=== PATIENT | female | born 1970 | race Caucasian/White ===

== ENCOUNTER → 2018-04-11 | Outpatient (CLI) | payer BC ==
--- NOTE | 2018-04-11 14:41 | KCIC ---
Bilateral digital screening mammograms: Reason for examination: Routine screening. Comparison is made to previous studies dated 01/08/2016 and 08/20/2013. Interpretation was made with the benefit of CAD. The skin and nipples show no abnormalities. No abnormal axillary lymph nodes are seen. The breast parenchyma is extremely dense. (Breast density: Category D.) There are no dominant masses, suspicious calcifications or architectural distortion. Impression: No evidence of malignancy. Recommend routine screening. Your patient's mammogram demonstrates that she has dense breast tissue (breast density category C or D), which could hide abnormalities, and if she has other risk factors for breast cancer that have been identified, she might benefit from supplemental screening tests that may be suggested by you as her ordering physician. Dense breast tissue, in and of itself, is a relatively common condition. Therefore, this information is not provided to cause undue concern, but rather to raise your awareness and to promote discussion with your patient regarding the presence of other risk factors, in addition to dense breast tissue. Your patient's mammography results will be sent to her. BI-RAD Category 1: Negative. "Our facility is accredited by the [employer] Mammography [employer]." This patient's information has been entered into a reminder system for the patient to be notified with the results of her examination and a target date for the next mammogram. Electronically signed by: Caryn Gage MD (04/11/2018 2:37 PM) [facility]
--- NOTE | 2018-04-11 15:16 | KCIC ---
EXAM: Pelvic sonogram. HISTORY: Vaginal bleeding. TECHNIQUE: Transabdominal sonographic imaging of the pelvis was performed. COMPARISON: None. FINDINGS: The uterus measures 9.4 x 4.2 x 5.4 cm. The endometrium measures 6.5 mm in thickness. The ovaries are normal in size and demonstrate normal blood flow. There are bilateral ovarian follicles. There is no free fluid. IMPRESSION: Unremarkable pelvic sonogram. Electronically signed by: Svetlana Ferrer MD (04/11/2018 3:13 PM) [place] [id number]
== END | disposition home or self-care (01) ==
LOC: KCIC US 13:35
PROVIDERS: ATTEND Family Medicine
DX: Z12.31 Encounter for screening mammogram for malignant neoplasm of breast (principal); N83.01 Follicular cyst of right ovary; N83.02 Follicular cyst of left ovary
CPT/HCPCS: 76856; 77067

== ENCOUNTER → 2019-05-15 | Outpatient (CLI) | payer OTHER ==
--- NOTE | 2019-05-15 15:47 | KCIC ---
Bilateral digital screening mammograms: Reason for examination: Routine screening. Comparison is made to previous studies dated 04/11/2018 and 01/08/2016. Interpretation was made with the benefit of CAD. The skin and nipples show no abnormalities. No abnormal axillary lymph nodes are seen. The breast parenchyma is extremely dense. (Breast density: Category D.) There are no dominant masses, suspicious calcifications or architectural distortion. Impression: No evidence of malignancy. Recommend routine screening. Your patient's mammogram demonstrates that she has dense breast tissue (breast density category C or D), which could hide abnormalities, and if she has other risk factors for breast cancer that have been identified, she might benefit from supplemental screening tests that may be suggested by you as her ordering physician. Dense breast tissue, in and of itself, is a relatively common condition. Therefore, this information is not provided to cause undue concern, but rather to raise your awareness and to promote discussion with your patient regarding the presence of other risk factors, in addition to dense breast tissue. Your patient's mammography results will be sent to her. BI-RAD Category 1: Negative. "Our facility is accredited by the [employer] Mammography Program." This patient's information has been entered into a reminder system for the patient to be notified with the results of her examination and a target date for the next mammogram. Electronically signed by: Caryn Gage MD (05/15/2019 3:44 PM) [facility]
== END | disposition home or self-care (01) ==
LOC: KCIC MAMMO 14:22
PROVIDERS: ATTEND Family Medicine
DX: Z12.31 Encounter for screening mammogram for malignant neoplasm of breast (principal)
CPT/HCPCS: 77067

== ENCOUNTER → 2019-08-02 | Day surgery (SDC) | payer OTHER ==
[~2019-08-02] MED LIST: GLYCOPYRROLATE 1 MG/5 ML VIAL. ONE; IV RINGERS,LACTATED 1000ML 1,000 ML IV ONE; LIDOCAINE 2% PF 5 ML VIAL. ONE; METF500T16 PO; NORT25CA PO; PROPOFOL 40 ML IV ONE; ePHEDrine PF IN SALINE 50 MG/10 ML SYRINGE. IV ONE
[2019-08-02 09:34] VITALS: BP 128/74
--- NOTE | 2019-08-02 11:26 | HP ---
ADMIT DATE: 08/02/2019 REQUESTING PHYSICIAN: Kaylah De Leon MD PRIMARY CARE PHYSICIAN: Kaylah De Leon MD REASON FOR PROCEDURE: Colorectal cancer screening. HISTORY OF PRESENT ILLNESS: This is a 48-year-old female who presents for colorectal cancer screening. She admits to a family history of stomach cancer and has mild heartburn. ALLERGIES: PENICILLIN. PAST MEDICAL HISTORY: 1. Depression. 2. Diabetes. 3. GERD. FAMILY MEDICAL HISTORY: 1. Stomach cancer in her sister. 2. Breast cancer in her mother. 3. Diabetes in her grandfather. SOCIAL HISTORY: She does admit to alcohol use and denies tobacco or IV drug abuse. MEDICATIONS: MAR reviewed. REVIEW OF SYSTEMS: A 13-point review of systems was done and is positive as per HPI, otherwise negative. PHYSICAL EXAMINATION: VITAL SIGNS: She is afebrile and her vital signs are stable. GENERAL: She is a well-developed, well-nourished female, in no apparent distress. HEENT: Oropharynx is clear. CARDIOVASCULAR: S1, S2. LUNGS: Clear. ABDOMEN: Normoactive bowel sounds, soft, nontender, nondistended. EXTREMITIES: No edema. NEUROLOGIC: Awake, alert and oriented x 3. ASSESSMENT AND PLAN: Colorectal cancer screening. Risks and benefits of the colonoscopy including bleeding, perforation ____ have been reviewed with her and she has agreed to proceed. Thank you for allowing me to participate in the care of this patient. JOHAN ANDRADE MD DR: NIDIA/jeancarlos JOB#: [id number] / [id number]
--- NOTE | 2019-08-02 14:54 | HP ---
ADMIT DATE: 08/02/2019 REQUESTING PHYSICIAN: Kaylah De Leon MD PRIMARY CARE PHYSICIAN: Kaylah De Leon MD REASON FOR PROCEDURE: Colorectal cancer screening. HISTORY OF PRESENT ILLNESS: This is a 48-year-old female who presents for colorectal cancer screening. She admits to a family history of stomach cancer and has mild heartburn. ALLERGIES: PENICILLIN. PAST MEDICAL HISTORY: 1. Depression. 2. Diabetes. 3. GERD. FAMILY MEDICAL HISTORY: 1. Stomach cancer in her sister. 2. Breast cancer in her mother. 3. Diabetes in her grandfather. SOCIAL HISTORY: She does admit to alcohol use and denies tobacco or IV drug abuse. MEDICATIONS: MAR reviewed. REVIEW OF SYSTEMS: A 13-point review of systems was done and is positive as per HPI, otherwise negative. PHYSICAL EXAMINATION: VITAL SIGNS: She is afebrile and her vital signs are stable. GENERAL: She is a well-developed, well-nourished female, in no apparent distress. HEENT: Oropharynx is clear. CARDIOVASCULAR: S1, S2. LUNGS: Clear. ABDOMEN: Normoactive bowel sounds, soft, nontender, nondistended. EXTREMITIES: No edema. NEUROLOGIC: Awake, alert and oriented x 3. ASSESSMENT AND PLAN: Colorectal cancer screening. Risks and benefits of the colonoscopy including bleeding, perforation ____ have been reviewed with her and she has agreed to proceed. Thank you for allowing me to participate in the care of this patient. RIA CRUM MD DR: RERE/jeancarlos JOB#: [id number] / [id number]
--- NOTE | 2019-08-03 12:06 | PATHOLOGY ---
[facility] Accession Number: [id number] . 01 Material submitted: . PART A: colon - TRANSVERSE POLYP. Modifiers: transverse PART B: rectum - RECTAL POLYP . 01 Clinical history: . CRC screen . 02 Diagnosis: A. Colon biopsies, transverse colon polyp: - Tubular adenoma. . B. Colorectal biopsies, rectal polyps: - Hyperplastic polyps. . (JPM:ursula; 08/03/2019) QMS 08/03/2019 0921 Local . 02 Comment: There is no high grade dysplasia or evidence of malignancy. . 02 Electronically signed: . Merritt Aguilar MD, Pathologist NPI- [id number] . 01 Gross description: . A. Received in formalin labeled "Donovan, Julissa, transverse polyp," are 4 segments of denise soft tissue measuring 0.9 x 0.5 x 0.3 cm in aggregate dimensions and ranging from 0.4 to 0.5 cm in maximum dimension. The specimen is submitted entirely in cassette A1. . B. Received in formalin labeled "Donovan, Julissa, rectal polyp," are 2 segments of denise soft tissue measuring 0.7 x 0.2 x 0.2 cm in aggregate dimensions and ranging from 0.3 to 0.4 cm in maximum dimension. The specimen is submitted entirely in cassette B1. (TSD; 08/02/2019) TOB/TOB 08/02/2019 1734 Local . 02 Pathologist provided ICD-10: D12.3, K62.1 . 02 CPT . 089828, [id number] Specimen Comment: A courtesy copy of this report has been sent to [phone], [phone] Specimen Comment: [id number] Specimen Comment: Report sent to / DR MCDONNELL Performed at: 01 [facility] [address] [facility] [place] [address], [place], [place] [id number] MD Tuan Valverde MD Phone: [phone] Performed at: 02 [facility] [address], [place] [id number] MD Merritt Aguilar MD Phone: [phone]
== END | disposition home or self-care (01) ==
LOC: ENDOS 08:09
PROVIDERS: ATTEND Internal Medicine Gastroenterology
DX: Z12.11 Encounter for screening for malignant neoplasm of colon (principal); D12.3 Benign neoplasm of transverse colon; K62.1 Rectal polyp; K64.0 First degree hemorrhoids; F32.9 Major depressive disorder, single episode, unspecified; E11.9 Type 2 diabetes mellitus without complications; K21.9 Gastro-esophageal reflux disease without esophagitis; Z79.84 Long term (current) use of oral hypoglycemic drugs; Z72.89 Other problems related to lifestyle
CPT/HCPCS: 45380; 88305; J0171; J2001; J2704; J3490

== ENCOUNTER → 2020-12-17 | Outpatient (CLI) | payer OTHER ==
[2019-08-02 09:34] VITALS: BP 128/74
[~2020-12-17] MED LIST changes: -GLYCOPYRROLATE 1 MG/5 ML VIAL. ONE; -IV RINGERS,LACTATED 1000ML 1,000 ML IV ONE; -LIDOCAINE 2% PF 5 ML VIAL. ONE; -PROPOFOL 40 ML IV ONE; -ePHEDrine PF IN SALINE 50 MG/10 ML SYRINGE. IV ONE
--- NOTE | 2020-12-17 15:26 | KCIC ---
Bilateral digital screening mammograms: Reason for examination: Routine screening. Comparison is made to previous studies dated back to 08/20/2013. Interpretation was made with the benefit of CAD. The skin and nipples show no abnormalities. No abnormal axillary lymph nodes are seen. The breast par enchyma is extremely dense. (Breast density: Category D.) There are no dominant masses, suspicious ca lcifications or architectural distortion. Impression: No evidence of malignancy. Recommend routine screening. Your patient's mammogram demonstrates that she has dense breast tissue (breast density category C or D), which could hide abnormalities, and if she has other risk factors for breast cancer that have bee n identified, she might benefit from supplemental screening tests that may be suggested by you as her ordering physician. Dense breast tissue, in and of itself, is a relatively common condition. Therefo re, this information is not provided to cause undue concern, but rather to raise your awareness and t o promote discussion with your patient regarding the presence of other risk factors, in addition to d ense breast tissue. Your patient's mammography results will be sent to her. BI-RAD Category 1: Negative. "Our facility is accredited by the [employer] Mammography Program." This patient's information has been entered into a reminder system for the patient to be notified wit h the results of her examination and a target date for the next mammogram. Electronically signed by: Caryn Gage MD (12/17/2020 3:24 PM) [id number]
== END ==
LOC: KCIC MAMMO 13:35
PROVIDERS: ATTEND Family Medicine
DX: Z12.31 Encounter for screening mammogram for malignant neoplasm of breast (principal)
CPT/HCPCS: 77067